=== PATIENT | female | born 1970 | race Caucasian/White ===

== ENCOUNTER → 2017-08-25 10:04 | Outpatient (CLI) | payer OTHER, SELFPAY ==
--- NOTE | 2017-08-25 10:08 | MM_ITS ---
MM Dig screening mamm BI w/CAD CAD Screening COMPARISON: Digital mammograms with CAD 05/15/2015 and 12/31/2012 INDICATION: There is a history of breast cancer patient maternal great aunt. TECHNIQUE: Standard CC and MLO images were obtained. R2 CAD reviewed. FINDINGS: The breasts are composed primarily of fat with minimal scattered fiber glandular densities in each breast. There is no suspicious lesion and no suspicious microcalcifications. There are small nodes in both axilla. IMPRESSION: Fatty type breast parenchyma with no suspicious lesion seen BI-RADS Category: 1 Negative RECOMMENDED FOLLOW-UP: 1YR - 1 YEAR FOLLOW-UP (A letter has been sent to the patient regarding results of the study.)
== END ==
PROVIDERS: PCP Internal Medicine Adolescent Medicine; Visit Provider Internal Medicine Adolescent Medicine
DX: Z12.31 Encounter for screening mammogram for malignant neoplasm of breast (principal)
CPT/HCPCS: 77067

== ENCOUNTER → 2018-02-24 07:22 | Outpatient (CLI) | payer OTHER, SELFPAY ==
[2018-02-24 09:07] LABS: Alanine Aminotransferase 35 U/L (12-78); Albumin Level 3.8 gm/dL (3.4-5.0); Albumin/Globulin Ratio 1.1 (1.1-1.8); Alkaline Phosphatase 103 U/L (46-116); Anion Gap 13.4 mEq/L (5-15); Aspartate Amino Transferase 16 U/L (15-37); Bilirubin,Total 0.3 mg/dL (0.2-1.0); Blood Urea Nitrogen 13 mg/dL (7-18); Calcium 8.7 mg/dL (8.5-10.1); Carbon Dioxide 29 mmol/L (21.0-32.0); Chloride 105 mmol/L (98-107); Chol/HDL Ratio 4.7 (1-3.5); Cholesterol 210 mg/dL (140-200); Creatinine,Serum 0.91 mg/dL (0.55-1.02); Estimated Glomerular Filt Rate 66 ml/min (>60); Free T4 (Free Thyroxine) 1.08 ng/dl (0.76-1.46); GFR (African American) 80 ML/MIN (>60); Globulin 3.4 gm/dl (1.3-3.2); Glucose 97 mg/dL (74-106); HDL Cholesterol 45 mg/dL (29-89); LDL Cholesterol 147 mg/dL (0-130); Potassium 4.4 mmoL/L (3.5-5.1); Sodium 143 mmol/L (136-145); Thyroid Stimulating Hormone 4.15 uIU/ml (0.358-3.740); Total Protein,Serum 7.2 gm/dL (6.4-8.2); Triglycerides 92 mg/dL (30-200); VLDL Cholesterol 18 mg/dL (0-40)
[2018-02-24 09:47] LABS: Hemoglobin A1C 5.7 % (0.0-7.0)
[2018-02-25 18:06] LABS: Thyroid Peroxidase Antibodies 240 IU/mL (0-34)
== END ==
PROVIDERS: PCP Internal Medicine Adolescent Medicine; Visit Provider Internal Medicine Adolescent Medicine
DX: E03.9 Hypothyroidism, unspecified (principal)
CPT/HCPCS: 36415; 80053; 80061; 83036; 84439; 84443; 86376

== ENCOUNTER → 2018-04-05 10:57 | Outpatient (CLI) | payer OTHER, SELFPAY ==
--- NOTE | 2018-04-05 11:04 | CT_ITS ---
CT abdomen pelvis w con CLINICAL INDICATION: Mid abdominal pain ITS.REASON: NAUSEA,UPPER ABD PAIN ORDERING PHYSICIAN: Joseph Henry MD PATIENT AGE: 47 years COMPARISON: None TECHNIQUE: Axial images obtained with sagittal and coronal reformats. All CT scans at the facility use one or more dose reduction, viz: automated exposure control, ma/kV adjustment per patient size (including targeted exams where dose is matched to indication, i.e. head), or iterative reconstruction technique. PROCEDURE: Oral Contrast: None IV Contrast: 75 mL's Optiray 350. FINDINGS: Lower thorax: There is a noncalcified well-circumscribed 15 mm nodule in the left lower lobe medially adjacent to the hemidiaphragm and just lateral to the paraspinal area. There are postcholecystectomy changes. The liver, adrenal glands, pancreas, and kidneys have an unremarkable appearance. There is borderline splenomegaly at 14 cm. No intestinal obstruction or free air. Unremarkable appendix. No pelvic mass abnormal fluid collection or focal inflammatory change of the pelvis. No evidence of diverticulitis. No acute bony anomalies. IMPRESSION: 1. No acute abdominal or pelvic findings. 2. Noncalcified 15 mm nodule in the left lower lobe. The nodule is well-circumscribed. Suggest CT chest without and with contrast for further evaluation. This nodule is indeterminate. Neoplasm is not excluded.
== END ==
PROVIDERS: PCP Internal Medicine Adolescent Medicine; Visit Provider Internal Medicine Adolescent Medicine
DX: R11.0 Nausea (principal); R10.10 Upper abdominal pain, unspecified
CPT/HCPCS: 74177; Q9967

== ENCOUNTER → 2018-04-14 10:07 | Outpatient (CLI) | payer OTHER, SELFPAY ==
--- NOTE | 2018-04-14 10:21 | CT_ITS ---
CT chest wo/w con HISTORY: Follow-up pulmonary nodule ITS.REASON: LUNG NODULE ORDERING PHYSICIAN: Joseph Henry MD PATIENT AGE: 47 years COMPARISON: None Technique: Axial images obtained without and following the administration of 75 mL of Optiray 350 . Sagittal, and coronal reformatted images are also generated and reviewed. All CT scans at the facility use one or more dose reduction, viz: automated exposure control, ma/kV adjustment per patient size (including targeted exams where dose is matched to indication, i.e. head), or iterative reconstruction technique. FINDINGS: No mediastinal or hilar mass or adenopathy is evident. No aortic aneurysm or dissection. There are multiple bilateral pulmonary nodules. The largest is in the left lung base posteriorly and medially measuring 15 mm.. These nodules do not appear to enhance with contrast. Other nodules are in the right upper lobe anteriorly at 8 mm with small satellite nodules in this area, left lower lobe superior segment at 10 mm, left upper lobe 4 mm centrally, left upper lobe at 4 mm anteriorly and inferiorly, left lower lobe posteriorly at 6 and 4 mm. No effusions or infiltrates are evident. Upper abdominal images are unremarkable. There is a small area of sclerosis in the T5 vertebral body nonspecific. No bony destructive process is evident. IMPRESSION: There are multiple noncalcified bilateral pulmonary nodules the largest in the left lower lobe posteriorly and medially at 15 mm. These are well circumscribed. The differential diagnosis would include noncalcified granulomas versus pulmonary metastasis. Does the patient have a history of primary carcinoma? None of the nodules are particularly readily accessible for percutaneous biopsy. PET/CT may be of further value however, granulomatous disease can show increased activity on PET scan. If PET scan is not performed, would recommend a [address] follow-up of the chest without contrast
== END ==
PROVIDERS: PCP Internal Medicine Adolescent Medicine; Visit Provider Internal Medicine Adolescent Medicine
DX: R91.1 Solitary pulmonary nodule (principal)
CPT/HCPCS: 71270; Q9967

== ENCOUNTER → 2018-05-03 15:34 | Outpatient (CLI) | payer OTHER, SELFPAY ==
[2018-05-06 16:15] LABS: Histoplasma Gal'mannan Ag Ur <0.5 (<0.5 ng/mL)
[2018-05-09 08:16] LABS: Histoplasma Antibody Quant Negative (Neg:<1:1)
[2018-05-09 14:19] LABS: QuantiFERON-TB Gold Plus Negative
== END ==
PROVIDERS: Visit Provider Internal Medicine Adolescent Medicine
DX: J84.10 Pulmonary fibrosis, unspecified (principal)
CPT/HCPCS: 36415; 86480; 86698; 87385

== ENCOUNTER → 2018-07-22 07:32 | Outpatient (CLI) | payer OTHER, SELFPAY ==
--- NOTE | 2018-07-22 07:44 | CT_ITS ---
CT chest w con HISTORY: Follow-up lung nodules ITS.REASON: LUNG NODULE ORDERING PHYSICIAN: Joseph Henry MD PATIENT AGE: 47 years COMPARISON: 04/14/2018 TECHNIQUE: Axial images obtained following the administration of 75 mL of Optiray 350 . Sagittal, and coronal reformatted images are also generated and reviewed. All CT scans at the facility use one or more dose reduction, viz: automated exposure control, ma/kV adjustment per patient size (including targeted exams where dose is matched to indication, i.e. head), or iterative reconstruction technique. FINDINGS: No mediastinal or hilar mass or adenopathy is evident. There are multiple noncalcified pulmonary nodules once again noted. These nodules are not significantly changed in size exam may be slightly smaller. No new nodules are evident. There is patchy infiltrate within the left upper lobe, lingula, and left lung base which has developed since the previous exam. There is also mild atelectatic change in the right upper lobe which has developed since previous study. No effusions. No adenopathy. Upper abdominal images are unremarkable. No central obstructing lesion. No acute bony findings. There is mild splenomegaly at 14 cm not significantly changed. IMPRESSION: 1. Overall no significant change in the multiple pulmonary nodules. If anything some of the larger nodules may be slightly less prominent. This however is questionable. 2. There are new areas of infiltrate in the left upper lobe, lingula, and left lung base. 3. No change mild splenomegaly
[2018-07-22 07:52] LABS: Basophils # 0.1 K/mm3 (0-0.2); Basophils % 0.5 % (0.1-2.0); Eosinophils # 0.2 K/mm3 (0.0-0.4); Hematocrit 41.8 % (37.0-47.0); Hemoglobin 13.9 g/dL (12.2-16.2); Lymphocytes # 2.1 K/mm3 (0.7-4.5); Lymphocytes % 14.2 % (10-50); Mean Corpuscular HGB Conc 33.3 g/dL (31.8-35.4); Mean Corpuscular Hemoglobin 27.1 pg (27.0-31.2); Mean Corpuscular Volume 81.5 fl (81-99); Mean Platelet Volume 6.8 fl (7.4-10.4); Monocytes % 6.9 % (1.7-9.3); Neutrophils # 11.5 K/mm3 (1.8-7.8); Neutrophils % 77.4 % (37.0-80.0); Platelet Count 304 K/mm3 (142-424); Red Blood Count 5.12 M/mm3 (4.20-5.40); White Blood Count 14.8 K/mm3 (4.8-10.8)
[2018-07-22 08:03] LABS: Alanine Aminotransferase 57 U/L (12-78); Albumin Level 3.3 gm/dL (3.4-5.0); Albumin/Globulin Ratio 1.1 (1.1-1.8); Alkaline Phosphatase 90 U/L (46-116); Anion Gap 12.5 mEq/L (5-15); Aspartate Amino Transferase 24 U/L (15-37); Bilirubin,Total 0.4 mg/dL (0.2-1.0); Blood Urea Nitrogen 11 mg/dL (7-18); Calcium 8.4 mg/dL (8.5-10.1); Carbon Dioxide 30 mmol/L (21.0-32.0); Chloride 105 mmol/L (98-107); Creatinine,Serum 0.78 mg/dL (0.55-1.02); Estimated Glomerular Filt Rate 78 ml/min (>60); GFR (African American) 95 ML/MIN (>60); Globulin 3.1 gm/dl (1.3-3.2); Glucose 103 mg/dL (74-106); Potassium 3.5 mmoL/L (3.5-5.1); Sodium 144 mmol/L (136-145); Total Protein,Serum 6.4 gm/dL (6.4-8.2)
[2018-07-22 08:06] LABS: Thyroid Stimulating Hormone < 0.01 uIU/ml (0.358-3.740)
== END ==
PROVIDERS: Visit Provider Internal Medicine Adolescent Medicine
DX: E03.9 Hypothyroidism, unspecified (principal)
CPT/HCPCS: 36415; 71260; 80053; 84443; 85025; Q9967

== ENCOUNTER → 2018-08-11 10:54 | Outpatient (CLI) | payer OTHER, SELFPAY | PROVIDERS: PCP Internal Medicine Adolescent Medicine; Visit Provider Internal Medicine Adolescent Medicine | DX: R06.02 Shortness of breath (principal) | CPT/HCPCS: 94060; 94726; 94729 ==